=== PATIENT | male | born 1995 | race Caucasian/White ===

== ENCOUNTER 2023-11-21 04:35 | Emergency (ER) | payer OTHER, SELFPAY ==
[2023-11-21 04:36] VITALS: BP 147/99
[2023-11-21 05:00] VITALS: BP 146/88
[2023-11-21 05:01] VITALS: BMI 20.6
--- NOTE | 2023-11-21 05:40 | ED.GENMED ---
History of Present Illness
<BARBIE Morgan - Last Filed: 11/21/23 06:36>
General
Chief Complaint: Oral/Mouth Problem
Time Seen by Provider: 11/21/23 05:14
History of Present Illness
History of Present Illness:
Pt is a 28 y/o male with no significant PMHx presenting for dental discomfort x2 days. Patient states that Saturday night he started to have some intermittent discomfort above the left side of his mouth. He said this began to spread to the right side
of his mouth gradually since then. The discomfort is now located mostly to above the right side of his mouth to his right jaw. He describes it as 'needles' and a 'pressure.' He states it is now constant and worse when laying back. He states drinking
cold water provides some relief. He states he has been taking ibuprofen which provides some relief. He also admits to a mild headache on the right side of his head that began last night. He states the ibuprofen provides some relief of this headache.
He denies pain with eating or palpation of the affected area, fevers, sore throat, rhinorrhea, vision changes, ear pain/fullness, difficulty swallowing, SOB.
Past History
<Shavon Hernandez DO - Last Filed: 11/21/23 07:15>
Past History
ED Past Medical History: None
ED Past Surgical History: None
Social History
Tobacco: Non-smoker
Alcohol: None
Living: with family
Employment: Not employed
Family History
Family History: Other (Noncontributory)
Phy Exam
<BARBIE Morgan - Last Filed: 11/21/23 06:36>
Physical Exam
Physical Exam:
GENERAL: Alert , in no apparent distress
EYE: pupils equal and reactive
Ears: TM visualized and free of edema or erythema. Canal is free of debris, fluid, blood.
Nose: Nares patent b/l.
Mouth/Throat: Gums pink, moist, and free of edema or lesions. Teeth are in good repair and nontender to palpation. Airway intact, no exudates, erythema, edema of the pharynx. Uvula midline with normal rise and fall.
NECK: Supple, no significant adenopathy.
CARDIAC: Regular rate and rhythm .
LUNGS: Clear breath sounds bilaterally, no acute respiratory distress, no wheezes/rales/rhonchi
ABDOMEN: Soft, nondistended, nontender, no cvat
NEUROLOGICAL: Alert and oriented, no focal neuro deficits
SKIN: Warm and dry, skin intact.
MUSCULOSKELETAL: No edema, well perfused.
PSYCH: Normal and appropriate interaction.
Course
<BARBIE Morgan - Last Filed: 11/21/23 06:36>
Orders/Labs/Results
Orders:
Orders
11/21/23 05:39
Doxycycline [Vibramycin] 100 mg PO NOW STA
Ketorolac [Toradol] 30 mg IM NOW STA
Vital Signs
Initial and Last Documented VS:
Initial Vital Signs
Temp Pulse Resp BP Pulse Ox
97.9 F 75 20 147/99 100
11/21/23 04:36 11/21/23 04:36 11/21/23 04:36 11/21/23 04:36 11/21/23 04:36
Last Documented Vital Signs
Temp Pulse Resp BP Pulse Ox
97.9 F 88 17 128/80 99
11/21/23 04:36 11/21/23 06:10 11/21/23 06:10 11/21/23 06:10 11/21/23 06:10
<Shavon Hernandez DO - Last Filed: 11/21/23 07:15>
Orders/Labs/Results
Orders:
Orders
11/21/23 05:39
Doxycycline [Vibramycin] 100 mg PO NOW STA
Ketorolac [Toradol] 30 mg IM NOW STA
Vital Signs
Initial and Last Documented VS:
Initial Vital Signs
Temp Pulse Resp BP Pulse Ox
97.9 F 75 20 147/99 100
11/21/23 04:36 11/21/23 04:36 11/21/23 04:36 11/21/23 04:36 11/21/23 04:36
Last Documented Vital Signs
Temp Pulse Resp BP Pulse Ox
97.9 F 88 17 128/80 99
11/21/23 04:36 11/21/23 06:10 11/21/23 06:10 11/21/23 06:10 11/21/23 06:10
<BARBIE Morgan - Last Filed: 11/21/23 06:36>
*Pulse Oximetry
Patient hypoxic: no
*EKG
Interpreted by ED Provider?: NA
*Electronic Prepress Operator Interpretation
Rate: Electronic Prepress Operator- N/A
*Critical Care Note
Total Time (30-74mins, 75-104mins- exclusive of procedures): Not Applicable
ED Attending Note
<BARBIE Morgan - Last Filed: 11/21/23 06:36>
-
Portions of this chart may have been created with voice recognition software.� Occasional wrong word or��sound alike� substitutions may have occurred due to the inherent limitations of voice recognition software.
<Shavon Hernandez DO - Last Filed: 11/21/23 07:15>
ED Attending Note
Patient seen and examined by attending physician: Yes
I performed the substantive portion of visit, reviewed & personally made and approve the management plan that is documented in note by myself or ESTELA.: Yes
ED Attending Note:
This is a 28-year-old gentleman with no significant past medical history who presents with initially right upper lip, right upper central dental pain/right facial pain that began 24 hours ago, persistent and worsening with now occasional radiation
to his left upper dental region. Pain is temporized with drinking cold fluids, worse with supine positioning, not relieved with ibuprofen. No other associated symptoms, he denies nasal congestion, no sore throat, no difficulty swallowing, no pain
with chewing nor biting, no earache nor headache, no fever no chills. No neck pain no chest pain. No rash.
No history of similar episodes in the past.
Up-to-date with childhood immunizations including Varivax.
He takes no medicines on a daily basis.
Up-to-date with routine dental visits every 6 months the last occurring 3 to 4 months ago.
GENERAL: 28-year-old gentleman appears his stated age, awake and alert, appears mildly uncomfortable but easily communicative. His significant other is accompanying.
EYE: pupils equal and reactive. Extraocular muscles intact. Anicteric
NECK: Supple, nontender, no meningismus, no significant adenopathy.
ENT: There is no facial edema nor erythema nor rash. No facial nor mandible tenderness to palpation. No soft tissue swelling. Posterior pharynx is clear, oral mucosa is moist. No palpable dental tenderness, no evidence of dental carry nor
gingival erythema. No tenderness nor soft tissue swelling to the hard/soft palate. TM clear b/l, nares patent.
CARDIAC: Regular rate and rhythm. no murmur.
LUNGS: Clear breath sounds bilaterally, no acute respiratory distress, no wheezes/rales/rhonchi
ABDOMEN: Soft, nondistended, without focal tenderness
NEUROLOGICAL: Alert and oriented x3, no focal neuro deficits. Gait is walden and steady.
SKIN: Warm and dry, normal color, skin intact. No rash.
MUSCULOSKELETAL: No C/C/E. peripheral pulses are full and equal b/l. No palpable tenderness.
PSYCH: Normal and appropriate interaction.
Concern for occult dental infection/occult gingivitis, other consideration is occult sinusitis. Consideration for acute neuritis. Less likely trigeminal neuritis nor prodrome to herpes zoster as symptoms appeared now bilateral and there is no
significant aggravating factors�pain is not worsened with palpation.
Up-to-date with immunizations including Varivax and no prior history of chickenpox.
Will initiate a course of doxycycline for potential occult dental infection/less likely sinus infection and trial a dose of Toradol.
As there is no definitive tenderness on palpation, afebrile, no soft tissue swelling, imaging is not indicated at this time.
11/21/2023 0654 AM
Patient feeling moderately improved upon recheck.
Likely for potential occult dental infection, short course of Percocet which he may take along with ibuprofen as needed for pain.
Recommend supportive measures, elevating head of bed, local ice versus heat if helpful.
Prompt follow-up with dentist for recheck and thereafter follow-up with PCP.
Discharge Plan
Departure
Patient Disposition: Home (Routine Discharge)
Date of Disposition: 11/21/23
Time of Disposition: 06:48
Patient with high blood pressure during this ER visit?: No
Condition: Good
Discharge Problem:
acute right facial pain, acute maxillary dentalgia
Instructions: Dental Pain (DC)
Prescriptions:
New
oxycodone-acetaminophen [Percocet] 5-325 mg Tablet
1 tab PO Q6HPRN PRN (Reason: pain) Qty: 10 0RF
doxycycline monohydrate 100 mg capsule
100 mg PO BID Qty: 14 1RF
Referrals:
Zach Monte, [Family Provider] - Call in 1-3 days for appt
Activity Restrictions/Additional Instructions:
Continue ibuprofen as needed for pain. Short course of Percocet has been added for additional pain relief along with a 1 week course of doxycycline.
Touch base with your dentist for prompt follow-up.
Thereafter follow-up with PCP for recheck.
Interventions
Interventions:
*Risk Screen - Suicide Last Done: 11/21/23 04:36
*General Assessment Last Done: 11/21/23 04:36
*Neglect/Abuse Screening Last Done: 11/21/23 04:36
ED- Fall Risk Assessment Last Done: 11/21/23 04:36
*ED COVID-19 Vaccine History Last Done: 11/21/23 04:36
*Nursing Disposition Last Done: 11/21/23 06:55
Discharge Date and Time
Print Language: KENYAN
[2023-11-21] MEDS: TORADOL 30 MG IM (06:08)
[2023-11-21] MEDS: VIBRAMYCIN 100 MG PO (06:08)
[2023-11-21 06:10] VITALS: BP 128/80
== END 2023-11-21 06:55 | disposition home or self-care (01) ==
LOC: EMR 04:35
PROVIDERS: EMERGENCY PHYSICIAN Emergency Medicine; FAMILY PHYSICIAN Family Medicine
DX: R51.9 Headache, unspecified (principal); K08.89 Other specified disorders of teeth and supporting structures
CPT/HCPCS: 99284; 96372

== ENCOUNTER 2024-02-03 15:02 | Emergency (ER) | payer OTHER, SELFPAY ==
[2024-02-03 15:37] VITALS: BP 122/96
--- NOTE | 2024-02-03 15:48 | ED.GENMED ---
ED Provider Triage
<Natalie Ervin SATELLITE PROJECT SITE MONITOR - Last Filed: 02/03/24 15:50>
-
Patient seen by provider in Triage?: Seen in Triage
Attestation: A medical screening examination has been initiated by a qualified medical provider. Based on the assessment performed at this time, it has been determined that an emergent medical condition may exist and the patient has been informed
that further medical evaluation and possible additional diagnostic testing may be needed.
HPI: 29 yo male sent here from Urgent Care for headache for past 11 days. No recollection of injury.
GENERAL: Alert , in no apparent distress
EYE: No visual abnormalities.
ENT: No visible abnormalities.
LUNGS: No acute respiratory distress
NEUROLOGICAL: Alert and oriented
SKIN: Skin intact. No visible changes.
MUSCULOSKELETAL: Moving extremities normally
PSYCH: Normal and appropriate interaction.
This is a medical evaluation conducted in person to initiate diagnostic evaluation and provide initial therapeutics. Please see further documentation by the treating clinician.
History of Present Illness
<Natalie Ervin SATELLITE PROJECT SITE MONITOR - Last Filed: 02/03/24 15:50>
General
Chief Complaint: Headache
Time Seen by Provider: 02/03/24 17:30
<Kehinde Muniz PA-C - Last Filed: 02/03/24 18:55>
History of Present Illness
History of Present Illness:
29-year-old male presents to the emergency department for evaluation of an intractable headache for the past 11 days. Headache began gradually and is intermittently worsened and improved over the course the 11 days. Denies any associated vision
changes, nausea, vomiting, photophobia, neck pain, or fevers. Denies any recent or remote head trauma.
Past History
<Natalie Ervin SATELLITE PROJECT SITE MONITOR - Last Filed: 02/03/24 15:50>
Past History
ED Past Medical History: None
ED Past Surgical History: None
Social History
Tobacco: Non-smoker
Alcohol: None
Living: with family
Employment: Not employed
Family History
Family History: Other (Noncontributory)
Review of Systems
<Kehinde Muniz PA-C - Last Filed: 02/03/24 18:55>
Review of Systems
Allergies reviewed?: Yes
All Other Systems: ROS reviewed and negative except as documented in HPI and ROS
Phy Exam
<Kehinde Muniz PA-C - Last Filed: 02/03/24 18:55>
Physical Exam
Physical Exam:
GEN: Well appearing, NAD, WDWN
HEENT: Oral mucosa moist, no scleral icterus, no nasal congestion
Cardiac: Regular rate
Lung: No respiratory distress, no tachypnea
MSK: No gross deformity or injuries
Skin: Good color, no pallor or jaundice, no rashes
Neuro: AO x3; CN II-XII grossly intact. BUE strength 5/5 in all andrade, sensation intact and symmetric. BLE strength 5/5 in all andrade, sensation intact and symmetric
Psych: Calm, cooperative
Course
<Natalie Ervin, SATELLITE PROJECT SITE MONITOR - Last Filed: 02/03/24 15:50>
Orders/Labs/Results
Orders:
Orders
02/03/24 15:42
CT Head W/o Iv Contrast Urgent
Comment:
Reason For Exam: CASTRO for the last 11 days
02/03/24 17:40
Ketorolac [Toradol] 15 mg IV NOW STA
Magnesium Sulfate 2 Gram/50 ml [Magnesium Sulfate] 2 gram in 50 ml IV NOW
Metoclopramide [Reglan] 10 mg IV NOW STA
Vital Signs
Initial and Last Documented VS:
Initial Vital Signs
Temp Pulse Resp BP Pulse Ox
98.2 F 98 16 122/96 98
02/03/24 15:37 02/03/24 15:37 02/03/24 15:37 02/03/24 15:37 02/03/24 15:37
Last Documented Vital Signs
Temp Pulse Resp BP Pulse Ox
98.2 F 85 17 122/96 98
02/03/24 15:37 02/03/24 17:51 02/03/24 17:51 02/03/24 15:37 02/03/24 15:37
<Kehinde Muniz PA-C - Last Filed: 02/03/24 18:55>
Orders/Labs/Results
Orders:
Orders
02/03/24 15:42
CT Head W/o Iv Contrast Urgent
Comment:
Reason For Exam: CASTRO for the last 11 days
02/03/24 17:40
Ketorolac [Toradol] 15 mg IV NOW STA
Magnesium Sulfate 2 Gram/50 ml [Magnesium Sulfate] 2 gram in 50 ml IV NOW
Metoclopramide [Reglan] 10 mg IV NOW STA
Vital Signs
Initial and Last Documented VS:
Initial Vital Signs
Temp Pulse Resp BP Pulse Ox
98.2 F 98 16 122/96 98
02/03/24 15:37 02/03/24 15:37 02/03/24 15:37 02/03/24 15:37 02/03/24 15:37
Last Documented Vital Signs
Temp Pulse Resp BP Pulse Ox
98.2 F 85 17 122/96 98
02/03/24 15:37 02/03/24 17:51 02/03/24 17:51 02/03/24 15:37 02/03/24 15:37
<Kehinde Muniz PA-C - Last Filed: 02/03/24 18:55>
MDM/Problems Addressed
MDM/Problems Addressed:
Patient's head CT is unremarkable. Headache resolved with treatment in the emergency department. Most likely intractable migraine, discussed supportive care, will provide prescription for Imitrex should symptoms recur
<Kehinde Muniz PA-C - Last Filed: 02/03/24 18:55>
*Critical Care Note
Total Time (30-74mins, 75-104mins- exclusive of procedures): Not Applicable
ED Attending Note
<Natalie Ervin SATELLITE PROJECT SITE MONITOR - Last Filed: 02/03/24 15:50>
-
Portions of this chart may have been created with voice recognition software.� Occasional wrong word or��sound alike� substitutions may have occurred due to the inherent limitations of voice recognition software.
Discharge Plan
Departure
Patient Disposition: Home (Routine Discharge)
Date of Disposition: 02/03/24
Time of Disposition: 18:37
Patient with high blood pressure during this ER visit?: No
Discharge Problem:
Migraine
Instructions: Migraines (DC)
Prescriptions:
New
sumatriptan succinate [Imitrex] 50 mg tablet
50 mg PO ONCE PRN (Reason: migraine headache) Qty: 10 0RF
No Action
oxycodone-acetaminophen [Percocet] 5-325 mg Tablet
1 tab PO Q6HPRN PRN (Reason: pain) Qty: 10 0RF
doxycycline monohydrate 100 mg capsule
100 mg PO BID Qty: 14 1RF
Referrals:
Zach Monte, [Family Provider] -
Interventions
Interventions:
*Risk Screen - Suicide Last Done: 02/03/24 15:37
*General Assessment Last Done: 02/03/24 17:35
*Neglect/Abuse Screening Last Done: 02/03/24 15:37
*ED COVID-19 Vaccine History Last Done: 02/03/24 17:35
ED- Neurological Assessment Last Done: 02/03/24 17:35
Discharge Date and Time
Print Language: WOLOF
[2024-02-03] MEDS: REGLAN 10 MG IV (17:57)
[2024-02-03] MEDS: TORADOL 15 MG IV (17:57)
[2024-02-03] MEDS: MAGNESIUM SULFATE 50 IV (17:57)
[2024-02-03 19:01] VITALS: BP 100/71
== END 2024-02-03 19:02 | disposition home or self-care (01) ==
LOC: EMR 15:02
PROVIDERS: EMERGENCY PHYSICIAN Emergency Medicine; FAMILY PHYSICIAN Family Medicine
DX: G43.909 Migraine, unspecified, not intractable, without status migrainosus (principal)
CPT/HCPCS: 99284; 96365; 96375; 70450

== ENCOUNTER 2024-02-09 12:34 | Emergency (ER) | payer OTHER, SELFPAY ==
[2024-02-09 12:35] VITALS: BP 126/74
--- NOTE | 2024-02-09 13:48 | ED.GENMED ---
History of Present Illness
<Isis Macias PA-C - Last Filed: 02/09/24 20:14>
General
Chief Complaint: Musculo-Skeletal Complaint
Source: patient
Exam Limitations: none
Time Seen by Provider: 02/09/24 13:46
Nursing documentation reviewed up to this point in time: agreed with
History of Present Illness
History of Present Illness:
29-year-old male with no past medical history presents emergency department today with concerns of feeling like his jaw was out of place. Patient reports that he was at the dentist a few months ago and was told that his jaw is uneven and that it is
prone to clicking in and out of place. Patient reports that earlier today, he ate a sandwich with a Arabic bag and reports that patient felt his jaw pop out. Patient reports pain on his left TMJ. Patient states that the pain radiates into his
head and he has some discomfort around his ear as well. Patient was seen here a few days days ago for similar symptoms except at that time, he developed a migraine and was treated with Imitrex. Patient is been taking ibuprofen with minimal relief.
Patient denies any fevers or chills, any blunt trauma to the jaw, any other concerns at this time.
Past History
<Isis Macias PA-C - Last Filed: 02/09/24 20:14>
Past History
ED Past Medical History: None
ED Past Surgical History: None
Social History
Tobacco: Non-smoker
Alcohol: None
Living: with family
Employment: Not employed
Family History
Family History: Other (Noncontributory)
Review of Systems
<Isis Macias PA-C - Last Filed: 02/09/24 20:14>
Review of Systems
All Other Systems: ROS reviewed and negative except as documented in HPI and ROS
Phy Exam
<Isis Macias PA-C - Last Filed: 02/09/24 20:14>
Physical Exam
Physical Exam:
General: Patient is well appearing and in no acute distress; non-toxic
Skin: Warm and dry, no rashes or lesions
Head: Normocephalic, atraumatic. TMJ joints intact bilaterally.
Eyes: Sclera non-icteric. EOMs intact. PERRLA.
Cardiac: Regular rate
Peripheral Vascular:
Pulm: Normal respiratory effort
Musculoskeletal: TMJ joints intact bilaterally, mild tenderness palpation of the left TMJ, no obvious dislocation.
Neuro: CN II-XII intact, no focal neurologic deficits.
Psychiatric: Appropriate mood and affect.
Course
<Isis Macias PA-C - Last Filed: 02/09/24 20:14>
Vital Signs
Initial and Last Documented VS:
Initial Vital Signs
Temp Pulse Resp BP Pulse Ox
98.2 F 117 16 126/74 98
02/09/24 12:35 02/09/24 12:35 02/09/24 12:35 02/09/24 12:35 02/09/24 12:35
Last Documented Vital Signs
Temp Pulse Resp BP Pulse Ox
98.2 F 117 16 126/74 98
02/09/24 12:35 02/09/24 14:22 02/09/24 12:35 02/09/24 14:22 02/09/24 12:35
<Amadou Burdick DO - Last Filed: 02/09/24 14:12>
Vital Signs
Initial and Last Documented VS:
Initial Vital Signs
Temp Pulse Resp BP Pulse Ox
98.2 F 117 16 126/74 98
02/09/24 12:35 02/09/24 12:35 02/09/24 12:35 02/09/24 12:35 02/09/24 12:35
Last Documented Vital Signs
Temp Pulse Resp BP Pulse Ox
98.2 F 117 16 126/74 98
02/09/24 12:35 02/09/24 14:22 02/09/24 12:35 02/09/24 14:22 02/09/24 12:35
<Isis Macias PA-C - Last Filed: 02/09/24 20:14>
MDM/Problems Addressed
Differential Diagnosis Includes:
Differentials include tension headache, migraine headache, TMJ syndrome, musculoskeletal sprain/strain
MDM/Problems Addressed:
29-year-old male presents emergency department today with concerns of left-sided jaw pain. He was told he has an unstable jaw by his dentist multiple months ago. He was seen in emergency department a few days ago for similar symptoms and at that
time had migraine. Patient is well-appearing on exam, he has no dislocation in his TMJs bilaterally, he is minimal tenderness palpation. He did not have any blunt trauma to the jaw, no indication for imaging at this time, he is neurovascular
intact, discussed the diagnosis of TMJ syndrome with patient, discussed use of anti-inflammatories, discussed follow-up with his dentist. Patient expressed understanding. Patient stable for discharge.
Chronic conditions affecting care:
n/a
Acute Exacerbation and/or Progression of Chronic Illness:
n/a
<Isis Macias PA-C - Last Filed: 02/09/24 20:14>
*Pulse Oximetry
Patient hypoxic: no
*Critical Care Note
Total Time (30-74mins, 75-104mins- exclusive of procedures): Not Applicable
Data Reviewed
Review of Other/Old Records Reveals: Records (Reviewed ER physician documentation from 02/03/2024, patient seen for migraine headache for the past 11 days) and Discharge Summary (No discharge summary to review )
Source: patient and records
Prescriptions/Medications Considered But Not Given:
n/a
Further Testing Considered But Not Given:
n/a
<Isis Macias PA-C - Last Filed: 10/27/24 20:14>
Patient Management
Escalation/DeEscalation of care consider admission/obs:
Admit not indicated, patient stable for discharge
ED Attending Note
<Isis Macias PA-C - Last Filed: 02/09/24 20:14>
-
Portions of this chart may have been created with voice recognition software.� Occasional wrong word or��sound alike� substitutions may have occurred due to the inherent limitations of voice recognition software.
<Amadou Burdick DO - Last Filed: 02/09/24 14:12>
ED Attending Note
Patient seen and examined by attending physician: Yes
I performed a history and physical exam of patient and discussed management with resident, I reviewed resident's note and agree with documented findings and plan of care.: Yes
ED Attending Note:
I have reviewed and agree with history and plan by Isis Macias. My exam revealed 29-year-old male no acute distress. No signs of jaw dislocation. Patient likely has a mild TMJ. Stable for discharge and follow-up with dentist.
Discharge Plan
Departure
Patient Disposition: Home (Routine Discharge)
Date of Disposition: 02/09/24
Time of Disposition: 14:10
Patient with high blood pressure during this ER visit?: Yes
Condition: Good
Discharge Problem:
Temporomandibular oynte-okdy-xirikndsipu syndrome (TMJ)
Instructions: Temporomandibular joint (TMJ) disorders, TMJ Exercises, BLOOD PRESSURE
Prescriptions:
No Action
oxycodone-acetaminophen [Percocet] 5-325 mg Tablet
1 tab PO Q6HPRN PRN (Reason: pain) Qty: 10 0RF
doxycycline monohydrate 100 mg capsule
100 mg PO BID Qty: 14 1RF
sumatriptan succinate [Imitrex] 50 mg tablet
50 mg PO ONCE PRN (Reason: migraine headache) Qty: 10 0RF
Referrals:
Zach Monte, [Family Provider] -
Activity Restrictions/Additional Instructions:
Please call your dentist to schedule an appointment regarding this issue.
Please take ibuprofen for symptoms. This will not only help with pain but also inflammation. You can take 200 mg orally every 4-6 hours as needed. You can increase this to 400 mg every 4-6 hours if needed. You can take 600 mg in a single dose
which would be prescription strength. Please do not exceed 1200 mg in a day.
Please return to the emergency department should you experience chest pain, shortness of breath, hearing loss, or any other concerning signs or symptoms.
Dr. Santiago TMJ specialist:
Interventions
Interventions:
*Risk Screen - Suicide Last Done: 02/09/24 12:35
*General Assessment Last Done: 02/09/24 12:35
*Neglect/Abuse Screening Last Done: 02/09/24 12:35
*Nursing Disposition Last Done: 02/09/24 14:22
ED-Musculoskeletal Assessment Last Done: 02/09/24 14:04
Discharge Date and Time
Discharge Date/Time: 02/09/24 14:23
Print Language: [place]
[2024-02-09 14:22] VITALS: BP 126/74
== END 2024-02-09 14:23 | disposition home or self-care (01) ==
LOC: EMR 12:34
PROVIDERS: EMERGENCY PHYSICIAN Emergency Medicine; FAMILY PHYSICIAN Family Medicine
DX: M26.629 Arthralgia of temporomandibular joint, unspecified side (principal); R03.0 Elevated blood-pressure reading, without diagnosis of hypertension
CPT/HCPCS: 99282